=== PATIENT | female | born 1950 | race Asian ===

== ENCOUNTER 2017-11-14 12:19 | Outpatient (CLI) | payer MEDICARE, OTHER ==
[2017-11-14] MEDS ORDERED: BUFFERED LIDOCAINE 10 ML SYRINGE IU ONE (16:49)
--- NOTE | 2017-11-14 21:35 | Ultrasound Report ---
DATE OF SERVICE: 11/14/2017 ULTRASOUND-GUIDED FINE NEEDLE ASPIRATION RIGHT THYROID: 11/14/2017 CLINICAL INDICATION: Right thyroid nodule. Following obtaining informed consent, the patient's neck was prepped and draped in the usual sterile fashion. The skin and soft tissues were anesthetized with lidocaine. Under ultrasound guidance, four 22-gauge fine needle aspirations of the dominant nodule in the right lobe were performed. Needle washings were sub mitted to Pathology. The patient tolerated the procedure well. No immediate complications. IMPRESSION: Fine needle aspiration of dominant right thyroid nodule. Await pathology report. TD: 11/14/2017 22:34
[2017-11-15 12:00] VITALS: BP 157/74
== END 2017-11-14 12:20 | disposition home or self-care (01) ==
LOC: DI 12:19
PROVIDERS: ATTEND Family Medicine
DX: E04.1 Nontoxic single thyroid nodule (principal)
CPT/HCPCS: 10022; 76942

== ENCOUNTER 2022-05-30 14:47 | Outpatient (CLI) | payer MEDICARE, OTHER ==
--- NOTE | 2022-05-30 17:09 | DEXA Report ---
PROCEDURE: Dexa Spine and/or Hip INDICATIONS: OSTEOPOROSIS TECHNIQUE: Dual energy x-ray absorptiometry (DXA) was performed on a [employer] System. Regions measur ed are the AP Spine, femoral neck, and if needed forearm. COMPARISON: None. FINDINGS: Lumbar Spine: Bone Mineral Density 0.888 g/cm/cm,T score -2.4, osteopenia Left Hip: Bone Mineral Density 0.840 g/cm/cm,T score -1.3, osteopenia Left Femoral Neck: Bone Mineral Density 0.765 g/cm/cm, T score -2.0, osteopenia (T score greater or equal to -1.0: NORMAL) (T score from -1.1 to -2.4: OSTEOPENIA) (T score less than or equal to -2.5 to: OSTEOPOROSIS) Impression: Decreased bone mineral density within the osteopenia range. Patients with diagnosis of osteoporosis or osteopenia should have regular bone mineral density assess ment. For those eligible for Medicare, routine testing is allowed once every 2 years. Testing frequ ency can be increased for patients who have rapidly progressing disease or for those who are receivin g medical therapy to restore bone mass. Reviewed by: Clint Pacheco MD on 05/30/2022 5:07 PM PDT Approved by: Clint Pacheco MD on 05/30/2022 5:07 PM PDT Station ID: [id number]
== END 2022-05-30 14:48 | disposition home or self-care (01) ==
LOC: DI 14:47
PROVIDERS: ATTEND Family Medicine
DX: M85.89 Other specified disorders of bone density and structure, multiple sites (principal)